=== PATIENT | female | born 1985 | race Caucasian/White ===

== ENCOUNTER 2025-02-05 08:58 | Emergency (ER) | payer OTHER ==
[~2025-02-05] VITALS: Ht 172.7 cm; Wt 130.3 kg
[2025-02-05 09:16] VITALS: BP 133/78; PULSE 84; RESP 18; TEMP 98.5; O2SAT 99
--- NOTE | 2025-02-05 09:19 | ED.PDOC ---
Musculoskeletal HPI Comments 39 y/o M, presents to the for CC of s/p shoulder dislocation. Patient states, she has been experiencing left-shoulder pain following falling down the stairs yesterday (02/04/25). Patient reports, left-shoulder to have dislocated however, was able to self reduce back into place at that time; left extremity was then placed in a sling. Patient denies any numbness, tingling, back pain, headache, or head injury. No other symptoms or modifying factors are present at this time. Chief Complaint: Upper Extremity Time Seen by MD: 09:00 Reviewed Notes: Nurses Notes, Medications, Allergies Allergies: Coded Allergies: Acetaminophen (Verified Allergy, Unknown, 02/05/25) Hydrocodone (Verified Allergy, Unknown, 02/05/25) Iodine (Verified Allergy, Unknown, 02/05/25) Home Meds Active Scripts Diclofenac Potassium (Diclofenac Potassium) 50 Mg Tab, 1 TAB PO TIDP for 10 Days, #30 TAB Prov:CHARMAINE NAVARRO MD 02/05/25 Information Source: Patient Mode of Arrival: Ambulatory Location: Left Extremity Location: Shoulder Timing: Days Prehospital treatment: None Severity: Moderate Able to Move Extremity: Yes Pain: Moderate Mechanism: Spontaneous Circumstances: Spontaneous Onset of Symptoms: Spontaneous Symptoms: Pain DVT Risk Factors: NONE Associated signs and symptoms: Shoulder pain Past Medical History PAST MEDICAL HISTORY: Denies Surgical History: Denies all surgeries GRAFFITI CLEANER History: Denies all GRAFFITI CLEANER Hx Family History Family History: Unknown Social History Smoker: Non-Smoker Alcohol: Denies ETOH Use Drugs: Denies Drug Use Lives In: Home Constitutional: denies: chills, diaphoresis, fatigue, fever, malaise, sweats, weakness, others EENTM: denies: blurred vision, double vision, ear bleeding, ear discharge, ear drainage, ear pain, ear ringing, eye pain, eye redness, hearing loss, mouth pain, mouth swelling, nasal discharge, nose bleeding, nose congestion, nose pain, photophobia, tearing, throat pain, throat swelling, voice changes, others Respiratory: denies: cough, hemoptysis, orthopnea, SOB at rest, shortness of breath, SOB with excertion, stridor, wheezing, others Cardiovascular: denies: chest pain, dizzy spells, diaphoresis, Dyspnea on exertion, edema, irregular heart beat, left arm pain, lightheadedness, palpitations, PND, syncope, others Gastrointestinal: denies: abdomen distended, abdominal pain, blood streaked bowels, constipated, diarrhea, dysphagia, difficulty swallowing, hematemesis, melena, nausea, poor appetite, poor fluid intake, rectal bleeding, rectal pain, vomiting, others Genitourinary: denies: abnormal vagina bleeding, burning, dyspareunia, dysuria, flank pain, frequency, hematuria, incontinence, pain, , vagina discharge, urgency, others Neurological: denies: dizziness, fainting, headache, left sided numbness, left sided weakness, numbness, paresthesia, pre-existing deficit, right sided numbness, right sided weakness, seizure, speech problems, tingling, tremors, weakness, others Musculoskeletal: reports: others (left-shoulder pain); denies: back pain, gout, joint pain, joint swelling, muscle pain, muscle stiffness, neck pain Integumetry: denies: bruises, change in color, change in hair/nails, dryness, laceration, lesions, lumps, rash, wounds, others Allergic/Immunocompromised: denies: Difficulty Healing, Frequent Infections, Hives, Itching, others Hematologic/Lymphatic: denies: anemia, blood clots, easy bleeding, easy bruising, swollen glands, others Endocrine: denies: excessive hunger, excessive sweating, excessive thirst, excessive urination, flushing, intolerance to cold, intolerance to heat, unexplained weight gain, unexplained weight loss, others Psychiatric: denies: anxiety, bipolar disorder, depression, hopeless, panic disorder, schizophrenia, sleepless, suicidal, others All Other Systems: Reviewed and Negative Physical Exam General Appearance: Moderate Distress, Obese HEENT: Normal ENT Inspection, PERRL/EOMI Neck: Full Range of Motion, Non-Tender, Normal, Normal Inspection Respiratory: Chest Non-Tender, Lungs Clear, No Accessory Muscle Use, No Respiratory Distress, Normal Breath Sounds Cardiovascular: No Edema, No JVD, No Murmur, No Gallop, Normal Peripheral Pulses, Regular Rate/Rhythm Breast Exam: Deferred Gastrointestinal: No Organomegaly, Non Tender, No Pulsatile Mass, Normal Bowel Sounds, Soft Genitalia: Deferred Pelvic: Deferred Rectal: Deferred Extremities: Decreased range of motion, No calf tenderness, Normal capillary refill, Normal inspection, No pedal edema, Tender Musculoskeletal : Location: Left Extremity Location: Shoulder Apperance: Limited ROM, Tenderness: Moderate, Other (Patient dislocated left shoulder last night relocated herself this morning she feels abnormality to) Neurologic: Alert, scrap charger II-XII nml as Tested, No Motor Deficits, Normal Affect, Normal Mood, No Sensory Deficits Cerebellar Function: Normal Reflexes: Normal Skin: Dry, Normal Color, Warm Peripheral Pulses: 1+ carotid (R), 1+ carotid (L) Lymphatic: No Adenopathy Was a procedure done? Was a procedure done?: No Differential Diagnosis EXT Differential Diagnosis: Fracture, Sprain, Dislocation, DJD, Strain, Other (musculoskeletal pain) X-Ray, Labs, Meds, VS Vital Signs Date Time Temp Pulse Resp B/P (MAP) Pulse Ox O2 Delivery O2 Flow Rate FiO2 02/05/25 09:16 98.5 84 18 133/78 (96) 99 98.5 02/05/25 09:16 84 18 99 Room Air 02/05/25 09:01 97.1 83 18 128/88 97 97.1 [place] [id number] Ph: [phone] DIAGNOSTIC IMAGING Diagnostic Imaging Report : [id number] Signed PATIENT: ERNA DIAZ ZACCT: [id number] UNIT: [id number] : 1985 LOC: ER ROOM / BED: / AGE / SEX: 39 / F ADM STATUS: REG ER SERVICE 8 ORDERING PHYSICIAN: CHARMAINE NAVARRO MD PROCEDURE(s): LSHD2 - L SHOULDER 2+ VIEW XRAY REASON: Post dislocation happened yesterday ORDER NUMBER(s): [id number], ACCESSION NUMBER(s): [id number] CLINICAL INDICATION: Post dislocation happened yesterday TECHNIQUE: XY left SHOULDER 2+ VIEW XRAY COMPARISON: None FINDINGS/IMPRESSION: There is no evidence of acute fracture or dislocation. Soft tissues are unremarkable. ATED BY: DIMITRIS ESPINAL MD DICTATED DATE/TIME: 02/05/25 104 SIGNED BY: DIMITRIS ESPINAL MD SIGNED DATE/TIME: 12/27/25 1040 CC: X-Ray, Labs, Meds, VS Comment Course in a fast track even fall X-ray of the shoulder is negative Patient we will be discharged home Time of 1ST Reevaluation: 09:30 Reevaluation 1ST: Unchanged Patient Education/Counseling: Diagnosis, Treatment Family Education/Counseling: No Family Present Departure 1 Departure Time of Disposition: 10:50 Impression: Primary Impression: History of closed shoulder dislocation Disposition: 01 HOME / SELF CARE / HOMELESS Condition: Fair Additional Instructions: Keep her sling and follow up with your PCP e-Prescriptions Diclofenac Potassium (Diclofenac Potassium) 50 Mg Tab 1 TAB PO TIDP for 10 Days, #30 TAB Prov: CHARMAINE NAVARRO MD 02/05/25 Discharged With: Self Critical Care Note Critical Care Time?: No Stability Stability form required: No Heart Score Heart Score: Heart Score Response (Comments) Value History N/A 0 EKG N/A 0 Age <45 0 Risk Factors No known risk factors 0 Troponin N/A 0 Total 0 I personally scribed for CHARMAINE NAVARRO MD ([email or web address]) on 02/05/25 at 09:19. Electronically submitted by Gemma Escobedo ([facility]). I personally scribed for CHARMAINE NAVARRO MD ([email or web address]) on 02/05/25 at 09:52. Electronically submitted by Gemma Escobedo ([facility]). I personally scribed for CHARMAINE NAVARRO MD ([email or web address]) on 02/05/25 at 10:46. Electronically submitted by Gemma Escobedo ([facility]). CHARMAINE NAVARRO MD Feb 05, 2025 09:19
--- NOTE | 2025-02-05 10:42 | DVH ---
CLINICAL INDICATION: Post dislocation happened yesterday TECHNIQUE: XY left SHOULDER 2+ VIEW XRAY COMPARISON: None FINDINGS/IMPRESSION: There is no evidence of acute fracture or dislocation. Soft tissues are unremarkable.
[2025-02-05] MEDS ORDERED: DICL50TA2 PO (10:53)
== END 2025-02-05 11:00 | disposition home or self-care (01) ==
LOC: ER 08:58
DX: M25.512 Pain in left shoulder (principal); Z88.5 Allergy status to narcotic agent; Z88.8 Allergy status to other drugs, medicaments and biological substances
CPT/HCPCS: 73030